=== PATIENT | female | born 1950 | race Caucasian/White ===

== ENCOUNTER → 2016-10-20 | Outpatient (CLI) | payer OTHER ==
[~2016-10-20] MED LIST: ACET-1256 PO; ALBUAER2 INH; ALLDSR60 PO; ASPCH81X PO; BNV150 PO; CALCIUM 600+D+D OR; CMBIN INH; DIPH-437 PO; DTR5 PO; EXCEDRIN MIGRAINE PO; FLNIN NAE; LEVO50TA60 PO; LISI20TA PO; LOPE2TAB84 OR; LRT5 PO; MULTI VITAMIMINERALS OR; OMEG120013 OR; OMEP20CA9 OR; POTA-327 PO; SIMV40TA4 OR; TUSSIN OR; XNX25 PO; [UNRECOGNIZED DRUG - CODE] OPB
== END | disposition home or self-care (01) ==
LOC: C.MAMM 08:51
PROVIDERS: ATTEND Nurse Practitioner Family
DX: Z13.820 Encounter for screening for osteoporosis (principal); M85.851 Other specified disorders of bone density and structure, right thigh; M85.852 Other specified disorders of bone density and structure, left thigh; M85.88 Other specified disorders of bone density and structure, other site

== ENCOUNTER → 2017-01-15 | Outpatient (CLI) | payer OTHER ==
--- NOTE | 2017-01-18 08:00 | MAMMOGRAPHY REPORT ---
BILATERAL DIGITAL SCREENING MAMMOGRAM WITH CAD: 01/15/2017 CLINICAL HISTORY: Routine screening. TECHNIQUE: Current study was also evaluated with a Computer Aided Detection (CAD) system. Bilateral CC and MLO views were obtained. COMPARISON: Comparison is made to exams dated: 12/26/2013 mammogram - [facility], 1 mammogram, 03/16/2012 mammogram, 03/14/2011 mammogram, and 03/18/2010 mammogram. BREAST COMPOSITION: There are scattered areas of fibroglandular density in both breasts. FINDINGS: There is a possible 6 mm mass within the right upper outer quadrant posteriorly, which may represent an intramammary lymph node although was not clearly evident on prior exams. Recommend spo t compression tomosynthesis views and possible breast ultrasound for further evaluation. Additionall y, there is a nodular 7 mm asymmetry seen within the left medial breast middle depth seen on the cc v iew, for which spot compression tomosynthesis views and possible breast ultrasound are recommended fo r further evaluation. The remainder of both breasts demonstrate no suspicious masses, calcifications, or areas of park landscape architect ural distortion. Scattered bilateral benign-appearing calcifications are noted. IMPRESSION: ACR BI-RADS CATEGORY 0: INCOMPLETE EVALUATION: NEED ADDITIONAL IMAGING EVALUATION Possible right breast mass and left breast asymmetry, for which additional imaging evaluation is dashawn mmended. The patient will be called to schedule an appointment. Approximately 10% of breast cancers are not detected with mammography. A negative mammographic report should not delay biopsy if a clinically suggestive mass is present. Charley Thompson M.D. ah/:01/15/2017 16:13:33 Older Adult Social Work Specialist: Apple SANCHEZ([place])(M), [facility] letter sent: Addl Imaging 0 BI-RADS Code: ACR BI-RADS Category 0: Incomplete Evaluation: Need Additional Imaging Evaluation
== END | disposition home or self-care (01) ==
LOC: C.MAMM 13:25
PROVIDERS: ATTEND Nurse Practitioner Family
DX: Z12.31 Encounter for screening mammogram for malignant neoplasm of breast (principal); N64.89 Other specified disorders of breast; N63 Unspecified lump in breast

== ENCOUNTER → 2017-01-25 | Outpatient (CLI) | payer OTHER ==
--- NOTE | 2017-01-25 13:49 | MAMMOGRAPHY REPORT ---
BILATERAL DIGITAL DIAGNOSTIC MAMMOGRAM TOMOSYNTHESIS AND TARGETED BILATERAL ULTRASOUND: 01/25/2017 CLINICAL HISTORY: 66-year-old woman called back from screening mammography for possible right breast mass and left breast asymmetry. TECHNIQUE: Spot compression CC and MLO 2-D and tomosynthesis images of each breast were obtained. COMPARISON: Comparison is made to exams dated: 01/15/2017 mammogram, 12/26/2013 mammogram - [facility], 03/16/2012 mammogram, 03/16/2012 mammogram, 03/14/2011 mammogram, and 03/18/2010 mammogram. BREAST COMPOSITION: There are scattered areas of fibroglandular density in both breasts. FINDINGS: Spot compression views of the right breast demonstrate persistence of a low density circum scribed, 7.1 x 6.6 mm mass in the lateral posterior breast (CC tomosynthesis slice 25/74), without ev idence of architectural distortion or microcalcification. This projects superiorly based on the spot compression MLO view, measuring 4.9 mm in craniocaudal dimension (MLO tomosynthesis slice 28/77). Spot compression views of the left breast demonstrate a persistent lobulated and circumscribed mass m easuring 3.5 x 3.2 x 2.7 mm in the approximate 9:00 middle one third of the breast. No associated ar chitectural distortion or microcalcification. Further evaluation with ultrasound was performed. Targeted ultrasound was performed in the lateral right breast, and 8:00 through 10:00 axes of the lef t breast. In the right 9:00 axis, 6 end meters from the nipple, there is a small anechoic cyst measu ring 2.8 x 1.7 x 2.4 mm, which is too small to correlate with the lobulated and circumscribed mammogr aphic mass measuring approximately 7 mm. However, no other discrete solid or cystic mass is identifi ed in the lateral right breast on ultrasound. Ultrasound performed in the medial left breast demonstrates an isoechoic solid-appearing mass with in distinct borders in the 9:30 axis, 3 cm from the nipple, measuring 3.3 x 2.8 x 3.2 mm. This likely c orrelates with the mammographic mass and is indeterminate. Definitive characterization with an ultra sound-guided core biopsy is recommended. IMPRESSION: ACR BI-RADS CATEGORY 4B: INTERMEDIATE SUSPICION FOR MALIGNANCY, TARGETED ULTRASOUND ACR BI-RADS CATEGORY 4B: INTERMEDIATE SUSPICION FOR MALIGNANCY 1. Ultrasound guided core needle biopsy is recommended for an indeterminate solid appearing 3.3 mm i soechoic mass with indistinct borders in the 9:30 left breast, 3 cm from the nipple, thought to corre late with the mammographic mass. 2. There is a persistent 6 x 7 mm circumscribed low-density mammographic mass in the upper outer pos terior right breast, without definite sonographic correlate identified. Given the well circumscribed borders this mass is probably benign. However, pending benign pathology result in the left breast, would recommend follow-up right diagnostic mammograms and possible ultrasound in 6 months. If pathol ogy results in the left breast are atypical or malignant, would recommend an MRI for definitive agustín cterization of the right breast mass. These results and recommendations were discussed with the patient at the time of the exam. She tenta tively scheduled the left breast biopsy prior to leaving our department. Approximately 10% of breast cancers are not detected with mammography. A negative mammographic report should not delay biopsy if a clinically suggestive mass is present. Susanne Puentes M.D. ay/:01/25/2017 12:10:01 Master Chef: Regina LUNSFORD)(M), [facility] letter sent: Abnormal 4/5 BI-RADS Code: ACR BI-RADS Category 4B: Intermediate Suspicion For Malignancy Ultrasound BI-RADS: ACR BI-RADS Category 4B: Intermediate Suspicion For Malignancy
== END ==
LOC: C.MAMM 08:01
PROVIDERS: ATTEND Nurse Practitioner Family
DX: N63 Unspecified lump in breast (principal); N64.89 Other specified disorders of breast; R92.2 Inconclusive mammogram

== ENCOUNTER → 2017-02-02 | Outpatient (CLI) | payer OTHER ==
--- NOTE | 2017-02-02 09:46 | Discharge Instructions ---
Discharge Instructions Procedure Procedure Date: Feb 02, 2017. Reason for visit: Left Mass. Discharge Discharge Date: Feb 02, 2017. Discharge Diagnosis: post left breast ultrasound guided core biopsy Instructions Activity Recommendations: Additional Limitations (see below) Return to School/Work: no limitations Recommended Home Diet: No Limitations Provider Instructions: ACTIVITY RECOMMENDATIONS: * No lifting, pushing, pulling or exercising the affected side for three days. RETURN TO SCHOOL/WORK: * You may return to work/school after the procedure, but do not perform any strenuous activities for 24 to 48 hours. MEDICATIONS: * Tylenol (two 325 mg) every four to six hours if needed for mild pain (if not allergic to Tylenol). DIET: * Resume previous diet. SPECIAL CARE INSTRUCTIONS: * Keep biopsy site dry for 24 hours. May shower after 24 hours, but do not soak (bathe) incision. * May remove Tegaderm (plastic patch) tomorrow AFTER showering. * Leave the steri-strips on for one week. Allow the steri-strips to fall off by themselves. If not off after one week, you may remove them. You may place a Bandaid crosswise over the strips, if desired. * Apply ice 10 minutes on and 10 minutes off as needed. * Wear a bra at bedtime to sleep more comfortably for 2-3 days. * Your referring physician should have the results after approximately 5 to 7 business days. * Call for unusual bleeding, fever, drainage, etc or if you have any questions call [phone] during normal business hours or after hours call Dr Puentes, . FOLLOW UP VISIT: Follow-up with Referring Physician as scheduled. Allergies Coded Allergies: Doxazosin (Verified Allergy, Mild, rash, 08/09/09) pt states rash Dust (Verified Allergy, Unknown, `, 08/08/09) Seth White Recommendations: Call your doctor if: * Temperature above 101 degrees * Pain not relieved by pain medicine ordered * There is increased drainage or redness from any incision * You have any unanswered questions or concerns. Your Doctors Instructions noted above were prepared by provider Susanne Puentes. Patient Signature Section: Patient Instructions Signature Page Dyan Pascual Patient (or Guardian) Signature/Date: I have read and understand the instructions given to me by my caregivers. Caregiver/RN/Doctor Signature/Date: The above-named patient and/or guardian has received patient instructions on this date. + Original Patient Signature Page (only) stays with chart. Please make copy for patient.
--- NOTE | 2017-02-02 12:38 | MAMMOGRAPHY REPORT ---
UNILATERAL LEFT DIGITAL DIAGNOSTIC MAMMOGRAM TOMOSYNTHESIS: 02/02/2017 CLINICAL HISTORY: Status post ultrasound-guided core biopsy of a 3 mm mass in the 9:30 left breast. Please refer the report from left breast ultrasound guided core biopsy performed at the same time for full detail. IMPRESSION: POST PROCEDURE IMAGING FOR MARKER PLACEMENT Please refer the report from left breast ultrasound guided core biopsy performed at the same time for full detail. Approximately 10% of breast cancers are not detected with mammography. A negative mammographic report should not delay biopsy if a clinically suggestive mass is present. Susanne Puentes M.D. ay/:02/02/2017 09:47:26 Computer Salesperson Retail: Jess Lopez, [facility] BI-RADS Code: Post Procedure Imaging For Marker Placement
--- NOTE | 2017-02-02 12:38 | MAMMOGRAPHY REPORT ---
THIS REPORT HAS BEEN AMENDED. ULTRASOUND GUIDED BIOPSY LEFT BREAST: 02/02/2017 CLINICAL HISTORY: Patient presents for ultrasound guided core biopsy of a small 3 mm mass in the 9:30 left breast. COMPARISON: Comparison is made to exams dated: 01/25/2017 ultrasound, 01/25/2017 mammogram, 01/15/2017 mammogram, 12/26/2013 mammogram - [facility], 03/16/2012 mammogram, and 03/16/2012 m ammogram. PATIENT CONSENT: The procedure, risks and benefits were discussed with the patient and informed conse nt was obtained both verbally and in writing. Specific risks to this procedure include: bleeding, in fection, puncture of adjacent structure, nontarget biopsy, sampling error, pain, metal allergy and me dication reaction. PROCEDURE DESCRIPTION: A time out was performed and the left breast was agreed as the site of biopsy. The skin was prepped and draped in the usual sterile fashion. The 3 mm hypoechoic solid-appearing ma ss in the 9:30 left breast was chosen as the target for biopsy. Subcutaneous and intraparenchymal 1% buffered lidocaine, with and without epinephrine, was administered as local anesthesia. A skin incisi on was made. Through the incision, 4 samples were taken with a 14 gauge Achieve biopsy device. A rib bon shaped metallic marker was placed at the biopsy site. Hemostasis was achieved after manual compre ssion. The patient tolerated the procedure well and there was no immediate complication. The samples were sent to the pathology department in an appropriately labeled container. Post procedure left CC and ML tomosynthesis images were obtained. A new ribbon-shaped metallic biops y marker is seen in the 9:30 left breast. Based on the CC projection, the biopsy marker clip aligned with the nodular asymmetry in question, confirming mammographicsonographic correlation. Pending be nign pathology results and the left breast, follow-up right diagnostic mammograms and possible ultras ound are recommended in 6 months. IMPRESSION: ULTRASOUND GUIDED BIOPSY Status post ultrasound guided core biopsy of an indeterminate 3 mm hypoechoic solid-appearing mass in the 9:30 left breast, with biopsy marker placed at the site. Pending benign pathology results in the left breast, follow-up right diagnostic mammograms and possib le ultrasound are recommended in 6 months. The patient will receive notification of the biopsy results from her referring physician. Susanne Puentes M.D. ay/:02/02/2017 10:00:13 Transmission Systems Operator: Jess Lopez, [facility] AMENDMENT: 02/04/2017 Susanne Puentes M.D. 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 Associated microcalcifications noted. The intraductal papilloma measures 1 x 1 mm. The lining epithelial cells do not show any significant nuclear atypia nor are they monotonous in appearance. The pathology results are concordant with the imaging appearance, and the biopsy marker clip aligned with the mammographic mass in question. It is controversial whether all papilloma is without atypia need to be surgically excised, or can be followed up with imaging. However, surgical consultation fo r possible excision is recommended. A six-month follow-up in the right breast is also recommended fo r a focal asymmetry in the upper outer quadrant, without sonographic correlate.
== END | disposition home or self-care (01) ==
LOC: C.MAMM 09:08
PROVIDERS: ATTEND Nurse Practitioner Family
DX: N63 Unspecified lump in breast (principal); D24.2 Benign neoplasm of left breast; R92.0 Mammographic microcalcification found on diagnostic imaging of breast

== ENCOUNTER → 2017-08-03 | Outpatient (CLI) | payer OTHER ==
--- NOTE | 2017-08-03 15:15 | MAMMOGRAPHY REPORT ---
BILATERAL DIGITAL DIAGNOSTIC MAMMOGRAM TOMOSYNTHESIS WITH CAD AND TARGETED BILATERAL ULTRASOUND: 2017 CLINICAL HISTORY: 66-year-old woman presents for follow-up of a probably benign focal asymmetry in th e upper outer posterior right breast, and for a biopsy-proven papilloma without atypia in the 9:30 le ft breast. The patient underwent surgical consultation in [place], [place] for the left breast p apilloma and is currently planning to follow-up with imaging as opposed to surgical excision. TECHNIQUE: Bilateral breast tomosynthesis in addition to standard 2D mammography was performed. Exag gerated lateral right CC 2D and tomosynthesis view was also obtained. A repeat 2-D left MLO view was obtained to include more axillary tissue. Current study was also evaluated with a Computer Aided De tection (CAD) system. COMPARISON: Comparison is made to exams dated: 08/03/2017 ultrasound - [facility], ultrasound biopsy, 02/02/2017 mammogram, 01/25/2017 mammogram, and 01/15/2017 mammogram - [facility]. BREAST COMPOSITION: There are scattered areas of fibroglandular density in both breasts. FINDINGS: There is a stable ribbon-shaped biopsy marker clip in the 930 middle one third of the left breast. Focal asymmetry versus nodularity is no longer seen in the 930 left breast in the area of bi opsy marker clip. However this area will be reassessed with ultrasound to see if there is any residu al mass. There are a few scattered benign rim calcifications in the left breast. No new suspicious mass, architectural distortion or cluster of suspicious microcalcifications. There is a oval circumscribed low density 7 x 4 x 5 mm mass in the upper outer posterior right breast , seen on the MLO and exaggerated lateral CC images. This has not significantly changed in size or a ppearance compared to the 01/15/2017 right MLO view, and likely present on prior 2D mammograms dating back to 2013, therefore likely benign. No new suspicious masses, calcifications, asymmetries or area s of architectural distortion identified in the right breast. There are a few stable benign rounded rim calcifications. Targeted ultrasound was performed in both breasts. In the 9:30 left breast in the area of biopsy-pro mary papilloma, a mass is no longer identified. In the upper outer quadrant of the right breast, no d iscrete solid or cystic mass is identified. IMPRESSION: ACR-BI-RADS CATEGORY 3: PROBABLY BENIGN, TARGETED ULTRASOUND ACR-BI-RADS CATEGORY 3: PRO BABLY BENIGN 1. There are postbiopsy changes in the 9:30 left breast, with ribbon-shaped biopsy marker clip in pl deja. There is decreased mass/nodularity mammographically, and no residual mass identified on targete d ultrasound in the area of biopsy-proven papilloma. Therefore would recommend continuation of follo w-up imaging with tomosynthesis mammograms and possible ultrasound. 2. Persistent focal asymmetry in the upper outer posterior right breast that is oval, circumscribed and low in density measuring 7 mm. No sonographic correlate was identified but this appears stable c omparing it to the December 2016 mammograms and likely stable dating back to 2013. Given that no sonog raphic correlate was seen to confirm a benign etiology, another short interval follow-up right diagno stic tomosynthesis mammogram, including an exaggerated lateral CC view and possible ultrasound is rec ommended in 6 months. These results and recommendations were discussed with the patient at the time of the exam. Approximately 10% of breast cancers are not detected with mammography. A negative mammographic report should not delay biopsy if a clinically suggestive mass is present. Susanne Puentes M.D. ay/:08/03/2017 12:03:53 Gymnastic Coach: Apple SANCHEZ([place])(M), [facility] letter sent: Follow Up Recommended 3 BI-RADS Code: ACR-BI-RADS Category 3: Probably Benign Ultrasound BI-RADS: ACR-BI-RADS Category 3: Pr obably Benign
== END | disposition home or self-care (01) ==
LOC: C.MAMM 10:04
PROVIDERS: ATTEND Nurse Practitioner Family
DX: R92.8 Other abnormal and inconclusive findings on diagnostic imaging of breast (principal)